=== PATIENT | female | born 1990 ===

== ENCOUNTER → 2023-01-08 12:23 | Outpatient (CLI) | payer BC, SELFPAY ==
--- NOTE | ~2023-01-08 | MR_ITS ---
EXAMINATION: MR sacrum wo con DATE: 01/08/2023 13:02 INDICATION: Tailbone pain. Palpable mass. TECHNIQUE: Magnetic resonance imaging (MRI) of the sacrum was performed without intravenous contrast. COMPARISON: None. FINDINGS: There is a 6.3 cm cystic mass in left ovary with thin septation. Bone alignment is normal. No fractur e. There is mild osteoarthritis of the sacroiliac joints. There is mild lumbar spondylosis. IMPRESSION: 1. Mild osteoarthritis of the sacroiliac joints 2. 6.3 cm cystic mass in left ovary, likely benign. Pelvis ultrasound is recommended in one year. Reviewed, dictated and finalized at location E. IMPRESSION: 1. Mild osteoarthritis of the sacroiliac joints 2. 6.3 cm cystic mass in left ovary, likely benign. Pelvis ultrasound is recomm ended in one year.
== END ==
DX: M53.3 Sacrococcygeal disorders, not elsewhere classified (principal); N83.202 Unspecified ovarian cyst, left side
CPT/HCPCS: 72195

== ENCOUNTER → 2023-02-02 10:09 | Outpatient (CLI) | payer BC, SELFPAY ==
--- NOTE | ~2023-02-02 | US_ITS ---
EXAMINATION: US soft tissue lower back DATE: 02/02/2023 10:27 INDICATION: Mass on tailbone. TECHNIQUE: Multiple grayscale and Doppler ultrasound images of the lower back were obtained. COMPARISON: MRI 01/08/2023 FINDINGS: There is no abnormal soft tissue mass in the patient's area of concern in the sacrococcygea l region. IMPRESSION: 1. No abnormal soft tissue mass in the patient's area of concern in the sacrococcygeal region. Reviewed, dictated and finalized at location E. [employer] IMPRESSION: 1. No abnormal soft tissue mass in the patient's area of concern in the sacroco ccygeal region.
== END ==
DX: R22.9 Localized swelling, mass and lump, unspecified (principal)
CPT/HCPCS: 76705